=== PATIENT | female | born 1995 | race Caucasian/White ===

== ENCOUNTER 2023-03-13 08:34 | Outpatient (OUT) | payer BC, SELFPAY ==
[2023-03-13 09:17] LABS: Basophils Absolute Auto 0.1 10^3/uL (0.0-0.1); Eosinophils Absolute Auto 0.1 10^3/uL (0.0-0.7); Eosinophils Percent Auto 1.2 % (0.9-7.0); Hematocrit 37.3 % (36.0-48.0); Hemoglobin 12.5 g/dL (12.0-16.0); Immature Granulocytes Abs Auto 0.02 10^3/uL (0.00-0.03); Immature Granulocytes Pct Auto 0.3 % (0.0-0.5); Lymphocytes Absolute Auto 1.7 10^3/uL (1.2-3.8); Lymphocytes Percent Auto 28.8 % (20.5-60.0); Mean Corpuscular HGB Conc 33.5 g/dL (29.9-35.2); Mean Corpuscular Hemoglobin 27.1 pg (26.7-34.0); Mean Corpuscular Volume 80.9 fL (81.0-99.0); Mean Platelet Volume 10.8 fL (9.5-13.5); Monocytes Absolute Auto 0.5 10^3/uL (0.3-0.8); Neutrophils Absolute Auto 3.4 10^3/uL (1.4-6.5); Neutrophils Percent Auto 59.7 % (43.0-75.0); Platelet Count 242 10^3/uL (150-450); Red Blood Count 4.61 10^6/uL (4.20-5.40); Red Cell Distribution Width 13.3 % (11.0-15.0); White Blood Count 5.8 10^3/uL (4.0-11.0)
[2023-03-13 10:11] LABS: Estimated Average Glucose 103 mg/dL; Glycohemoglobin A1C 5.2 % (4.5-6.2)
[2023-03-13 11:26] LABS: Alanine Aminotransferase 15 U/L (14-59); Albumin Level 3.6 g/dL (3.4-5.0); Alkaline Phosphatase 55 U/L (46-116); Anion Gap 12.1; Aspartate Amino Transferase 11 U/L (15-37); Bilirubin Total 0.4 mg/dL (0.2-1.0); Calcium 8.4 mg/dL (8.5-10.1); Carbon Dioxide 27.1 mmol/L (21.0-32.0); Chloride 106 mmol/L (98-107); Chol HDL Ratio 2.9; Cholesterol 134 mg/dL (<=200); Estimated GFR (African America >60 (>=60); Estimated GFR (Non-African Ame >60 (>=60); Free T3 2.41 pg/mL (2.18-3.98); Globulin 3.5 g/dL; Glucose 91 mg/dL (74-106); HDL Cholesterol 46 mg/dL (40-60); LDL Cholesterol Calculated 69.6 mg/dL; Potassium 4.2 mmol/L (3.5-5.1); Sodium 141 mmol/L (136-145); Thyroid Stimulating Hormone 0.951 uIU/mL (0.358-3.740); Total Protein 7.1 g/dL (6.4-8.2); Triglycerides 92 mg/dL (<=150); VLDL CHOLESTEROL 18.4 mg/dL
[2023-03-14 12:09] LABS: Insulin 7.8 uIU/mL (2.6-24.9)
== END 2023-03-13 08:35 | disposition home or self-care (01) ==
LOC: LAB 08:40
PROVIDERS: PCP Family Medicine; Visit Provider Family Medicine
DX: Z00.00 Encounter for general adult medical examination without abnormal findings (principal); E78.5 Hyperlipidemia, unspecified; R73.09 Other abnormal glucose; D64.9 Anemia, unspecified
CPT/HCPCS: 36415; 80053; 80061; 83036; 83525; 83540; 84436; 84443; 84481; 85025

== ENCOUNTER 2023-09-13 | Outpatient (REF) | payer BC, SELFPAY | END 2023-09-13 00:01 | disposition home or self-care (01) | LOC: LAB | PROVIDERS: PCP Family Medicine; Visit Provider Surgery | DX: L72.0 Epidermal cyst (principal) | CPT/HCPCS: 88304 ==

== ENCOUNTER 2023-11-20 07:33 | Outpatient (OUT) | payer BC, SELFPAY ==
--- OUTSIDE RECORDS SUMMARY | 2023-11-20 07:36 | XMS_ITS | CCD ---
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 Name Role Phone ANTWAN ., DR ESTRELLA Admitting Unavailable HOY ., DR ESTRELLA Attending Unavailable HOY ., DR ESTRELLA Primary Care Unavailable HOY ., DR ESTRELLA Consulting Unavailable HOY ., DR ESTRELLA Admitting Unavailable HOY ., DR ESTRELLA Attending Unavailable HOY ., DR ESTRELLA Primary Care Unavailable HOY ., DR ESTRELLA Consulting Unavailable HOY ., DR ESTRELLA Admitting Unavailable HOY ., DR ESTRELLA Attending Unavailable HOY ., DR ESTRELLA Primary Care Unavailable HOY ., DR ESTRELLA Consulting Unavailable HOY ., DR ESTRELLA Primary Care Unavailable REINECK, DR DARVIN Chicas Admitting Unavailabl e REINECK, DR DARVIN Chicas Attending Unavailabl e REINECK, DR DARVIN Chicas Consulting Unavailabl e PHONGL, Sean Adan Attending Unavailable Delores Churchill Primary Care Physician Sean ELKINS Attending Unavailable NILL, Sean Adan Attending Unavailable NILL, Sean Adan Attending Unavailable NILL, Sean Adan Attending Unavailable Allergies Allergy Classification Reported Allergen(s) Allergy Type Date of Onset Reaction(s) Facility (2 sources) No Known Medication Allergies; Translations: [No Known Medication Allergies] Propensity to adverse reactions (disorder) [facility] Repository Problems Active Problems Problem Classification Problem Date Documented Date Episodic/Chronic Anxiety disorders (3 sources) Anxiety 08-04-2023 Chronic Biliary tract disease (2 sources) Biliary calculus 04-17-2014 Episodic Essential hypertension (3 sources) Hypertensive disorder 08-04-2023 Chronic Heart valve disorders (3 sources) Mitral valve prolapse 08-04-2023 Chronic Other diseases of kidney and ureters (3 sources) Vesicoureteric reflux 08-04-2023 Episodic Other nutritional; endocrine; and metabolic disorders (3 sources) Body mass index 30+ - obesity 08-16-2023 Chronic Other nutritional; endocrine; and metabolic disorders (5 sources) Morbid obesity 08-16-2023 Chronic Other skin disorders (3 sources) Epidermoid cyst; Translations: [Epidermal cyst] Onset: 08-16-2023 Episodic Other skin disorders (3 sources) Epidermoid cyst of skin 08-16-2023 Episodic Other skin disorders (3 sources) Sebaceous cyst 08-04-2023 Episodic Other upper respiratory infections (1 source) Acute upper respiratory infection, unspecified; Translations: [ACUTE UP RESPIRATORY INFECTION UNS] Onset: 11-21-2022 Episodic Unclassified (3 sources) COUGH, UNSPECIFIED; Translations: [COUGH, UNSPECIFIED] Onset: 07-23-2022 Unclassified (4 sources) CONTACT W/AND (SUSP) EXPOS COVID-19; Translations: [CONTACT W/AND (SUSP) EXPOS COVID-19] Onset: 05-29-2022 Past or Other Problems Problem Classification Problem Date Documented Da te Episodic/Chronic Acute bronchitis (1 source) Acute bronchitis, unspecified; Translations: [ACUTE BRONCHITIS UNSPECIFIED] Onset: 03-31-2022 Episodic Unclassified (1 source) COUGH, UNSPECIFIED; Translations: [COUGH, UNSPECIFIED] Onset: 11-19-2022 Unclassified (1 source) CONTACT W/AND (SUSP) EXPOS COVID-19; Translations: [CONTACT W/AND (SUSP) EXPOS COVID-19] Onset: 05-26-2022 Results Test Name Value Interpretation Reference Range Facility Ambulatory Visit Summaryon 0 09-26-2023 Ambulatory Visit Summary SAHIL RODRIGEZ :1995 Visit Date:09/26/2023 Ambulatory Visit Instructions Your Care Team Attending Physician - BRITTNI DURAN, Sean Adan Primary Care Physician - Antwan DURAN, Delores Procedures Performed Excision of cyst (09/13/2023), robotic assisted laparoscopic cholecystectomy (04/24/2014), Cholecystectomy, INJECTION OF DEFLEX, Tooth extraction. Allergies No Known Allergies No Known Medication Allergies Problems Ongoing - Any problem that you are currently receiving treatment for. Anxiety BMI 39.0-39.9,adult Cholelithiasis Epidermal cyst Extreme obesity 06-FEB-2014 12:48:08<$> Hypertensive disorder Mitral prolapse Morbid obesity Sebaceous cyst Vesicoureteral reflux Patient Survey You may receive a survey via text or e-mail asking about your office visit. Please share your experience with us by completing your survey. We appreciate your feedback and thank you for choosing us for your care. Ender B[facility] General Surgery Office/Clini c Noteon 09-26-2023 General Surgery Office/Clinic Note Chief Complaint post operative follow up HPI Staff 13 day post operative follow up post in-office excisional biopsy left upper back. Denies discomfort or bleeding. Reports scant serous drainage noted today. Sutures intact. History of Present Illness almost 2 weeks s/p excisional biopsy epidermal cyst left upper back; doing well, no pain, some itching, minimal drainage; pathology consistent with epidermal cyst. Review of Systems ROS - Provider Constitutional: no fever, no sweats, no weight loss. Eyes: no glasses, no blurred vision, no visual loss. ENMT: no dentures, no hoarseness, no swallowing difficulties, no hearing loss, no ear infection(s), no nose bleeds. Cardiovascular: normal blood pressure, no chest pain, regular heartbeat, no heart murmur. Respiratory: no shortness of breath, no cough, no asthma, no wheezing. Gastrointestinal: no nausea, no vomiting, no diarrhea, no constipation, no blood in stool, no change in bowel habits, no abdominal pain, no hepatitis. Genitourinary: no kidney stones, no urine infection, no dysuria. Musculoskeletal: no pain, no weakness. Skin: no changing moles, no rash, no skin lumps. Neurologic: no seizures, no epilepsy, no headache. Psychiatric: no emotional or psychiatric problem. Heme/Lymph: no bleeding problems, no anemia, no blood clots, no transfusions. Allergy/Immunologic: no swollen lymph nodes/glands, no IV drug abuse. Other: Additional ROS info: Except as noted in the above Review of Systems and in the History of Present Illness, all other systems have been reviewed and are negative or noncontributory. Physical Exam skin: incision healing well, no drainage, minimal erythema around sutures. Assessment/Plan 1. Epidermal cyst (L72.0: Epidermal cyst) sutures removed; call with problems/questions. Follow-up With When Contact Information BRITTNI DURAN, MARCIANO Polo Only if needed [address] [place] [address]- Additional Instructions: Problem List/Past Medical History Ongoing Anxiety BMI 39.0-39.9,adult Cholelithiasis Epidermal cyst Extreme obesity 06-FEB-2014 12:48:08<$> Hypertensive disorder Mitral prolapse Morbid obesity Sebaceous cyst Vesicoureteral reflux Historical No qualifying data Procedure/Surgical History Excision of cyst (09/13/2023), robotic assisted laparoscopic cholecystectomy (04/24/2014), Cholecystectomy, INJECTION OF DEFLEX, Tooth extraction. Medications No active medications Allergies No Known Allergies No Known Medication Allergies Social History Alcohol - Denies Alcohol Use, 08/16/2023 Substance Abuse - Denies Substance Abuse, 08/16/2023 Tobacco - Denies Tobacco Use, 04/17/2014 Never (less than 100 in lifetime) Tobacco Use:. Never Smokeless Tobacco Use:., 08/16/2023 Family History Diabetes mellitus type 2: Father. Hypertension: Mother. Immunizations Vaccine Date Status Comments influenza virus vaccine, inactivated - Not Given Patient Refuses [facility] Comment on above: Result Comment: Elec tronically Signed By: BRITTNI DURAN, Sean Adan\.br\Date and Time Signed: 09/26/23 19:15 EST Pathology Noteon 09-21-2023 Pathology Note [id number] .00TIFF [facility] Pathology Noteon 09-19-2023 Pathology Note [id number] .00TIFF [facility] Ambulatory Visit Summaryon 0 09-13-2023 Ambulatory Visit Summary SAHIL RODRIGEZ :1995 Visit Date:09/13/2023 Ambulatory Visit Instructions Your Care Team Attending Physician - Sean ELKINS MD Primary Care Physician - Delores Churchill MD Procedures Performed robotic assisted laparoscopic cholecystectomy (04/24/2014), Cholecystectomy, INJECTION OF DEFLEX, Tooth extraction. What to do next Scheduled Follow-Up Appointments Monday 3:40 PM EST With: Sean ELKINS MD Where: General Surgery [facility] General Surgery Office/Clini c Noteon 09-13-2023 General Surgery Office/Clinic Note Chief Complaint in-office excisional biopsy HPI Staff Presents for in-office excisional biopsy epidermal cyst left upper back. History of Present Illness here for excisional biopsy of epidermal cyst left upper back, slight increase in size. Review of Systems ROS - Provider Constitutional: no fever, no sweats, no weight loss. Eyes: no glasses, no blurred vision, no visual loss. ENMT: no dentures, no hoarseness, no swallowing difficulties, no hearing loss, no ear infection(s), no nose bleeds. Cardiovascular: normal blood pressure, no chest pain, regular heartbeat, no heart murmur. Respiratory: no shortness of breath, no cough, no asthma, no wheezing. Gastrointestinal: no nausea, no vomiting, no diarrhea, no constipation, no blood in stool, no change in bowel habits, no abdominal pain, no hepatitis. Genitourinary: no kidney stones, no urine infection, no dysuria. Musculoskeletal: no pain, no weakness. Skin: no changing moles, no rash, no skin lumps. Neurologic: no seizures, no epilepsy, no headache. Psychiatric: no emotional or psychiatric problem. Heme/Lymph: no bleeding problems, no anemia, no blood clots, no transfusions. Allergy/Immunologic: no swollen lymph nodes/glands, no IV drug abuse. Other: Additional ROS info: Except as noted in the above Review of Systems and in the History of Present Illness, all other systems have been reviewed and are negative or noncontributory. Physical Exam skin: 1 cm epidermal cyst left upper back, no skin changes, or drainage, nontender. Procedure patient brought to the procedure room, placed in supine position, area prepped and draped in sterile fashion; anesthetized with 1 % lidocaine; lesion excised in elliptical fashion down to subcutaneous fat; total length of incision 1.5 cm, closed with interrupted 4-0 nylon sutures; tolerated well; ebl < 5 ml; sterile dressing applied. Assessment/Plan 1. Epidermal cyst (L72.0: Epidermal cyst) excised under local anesthesia, tolerated well; take ibuprofen as needed for pain; f/u in 10-14 days for suture removal, call sooner if problems/questions. Orders: acetaminophen-hydroco done, 2 tab(s), Oral, q6hr Pain, 50 tab(s), Refill(s) 0, TAKE WITH FOOD Follow-up No qualifying data available Problem List/Past Medical History Ongoing Anxiety BMI 39.0-39.9,adult Cholelithiasis Epidermal cyst Extreme obesity 06-FEB-2014 12:48:08<$> Hypertensive disorder Mitral prolapse Morbid obesity Sebaceous cyst Vesicoureteral reflux Historical No qualifying data Procedure/Surgical History robotic assisted laparoscopic cholecystectomy (04/24/2014), Cholecystectomy, INJECTION OF DEFLEX, Tooth extraction. Medications No active medications Allergies No Known Allergies No Known Medication Allergies Social History Alcohol - Denies Alcohol Use, 08/16/2023 Substance Abuse - Denies Substance Abuse, 08/16/2023 Tobacco - Denies Tobacco Use, 04/17/2014 Never (less than 100 in lifetime) Tobacco Use:. Never Smokeless Tobacco Use:., 08/16/2023 Family History Diabetes mellitus type 2: Father. Hypertension: Mother. Immunizations Vaccine Date Status Comments influenza virus vaccine, inactivated - Not Given Patient Refuses [facility] Comment on above: Result Comment: Elec tronically Signed By: BRITTNI DURAN, Sean Adan\.br\Date and Time Signed: 09/13/23 15:03 EST Insurance Correspondenceon 0 09-13-2023 Insurance Correspondence [id number]# 1.00TIFF [facility] Facesheeton 08-17-2023 Facesheet [id number]# 1.00TIFF [facility] Ambulatory Visit Summaryon 0 08-16-2023 Ambulatory Visit Summary SAHIL RODRIGEZ :1995 Visit Date:08/16/2023 Ambulatory Visit Instructions Your Care Team Attending Physician - BRITTNI DURAN, Sean Adan Primary Care Physician - Antwan DURAN, Delores Procedures Performed Cholecystectomy. Discharge Vitals Heart Rate (Peripheral) 72 Respiratory Rate 16 Blood Pressure 130/88 Height 180.34 cm Height 71 in Weight 128.7 kg Weight 283.14 lb BMI 39.57 Medications and Immunizations Administered Not Given influenza virus vaccine, inactivated, Patient Refuses Allergies No Known Allergies No Known Medication Allergies Problems Ongoing - Any problem that you are currently receiving treatment for. Anxiety BMI 39.0-39.9,adult Hypertensive disorder Mitral prolapse Morbid obesity Sebaceous cyst Vesicoureteral reflux Patient Survey You may receive a survey via text or e-mail asking about your office visit. Please share your experience with us by completing your survey. We appreciate your feedback and thank you for choosing us for your care. [facility] Provider Letteron 08-16-2023 Provider Letter August 16, 2023 SAHIL RODRIGEZ [address] [place] [address] : 1995 To Whom It May Concern, Please excuse above patient from work. Date of Illness:appt From: 08/16/23 To: 08/17/23 May Return to Work On:08/17/23 Comments: Sincerely, Dr Sean Elkins [facility] Covid-19 PCR (CVDTB)on 07-07 SARS-CoV-2 (COVID-19) RNA RAJESH+probe Ql (Unsp spec) Not detected Normal NOT DETECTED [facility] Comment on above: Result Comment: This test is not yet approved or cleared by the [place] FDA. When there are no FDA-approved or cleared tests available, and other criteria are met, FDA can make tests available under an emergency access mechanism called an Emergency Use Authorization (EUA). The EUA for this test is supported by the [place] of Health and Human Service's (HHS's) declaration that circumstances exist to justify the emergency use of in vitro diagnostics for the detection and/or diagnosis of the virus that causes COVID-19. This EUA will remain in effect (meaning this test can be used) for the duration of the COVID-19 declaration justifying emergency of IVDs, unless it is terminated or revoked by FDA (after which the test may no longer be used). When diagnostic testing is negative, the possibility of a false negative should be considered in the context of a patient's recent exposures and the presence of clinical signs and symptoms consistent with SARS-CoV-2. Performed By: #### C VDTB #### [facility] [address] [place] [id number] [address] Cassidy Hannah INFLUENZA A AND B AGon 07-18 [facility] Comment on above: Result Comment: Nega tive for Flu A protein angiten. Infection due to Flu A cannot be ruled out. Flu A angiten in the sample may be below the detection limit of the test. Performed By: #### I NFLUAB #### [facility] [address] [place] [address] Dr. Cassidy [facility] SEE BELOW [facility] Comment on above: Result Comment: Nega tive for Flu B protein antigen. Infection due to Flu B cannot be ruled out. Flu B antigen in the sample may be below the detection limit of the test. Performed By: #### I NFLUAB #### [facility] [address] [place] [address] Dr. Cassidy Hannah INFLUENZA A AG Negative Normal NEGATIVE SEE COMMENT [facility] Comment on above: Performed By: #### I NFLUAB #### [facility] [address] [place] [address] Dr. Cassidy Hannah INFLUENZA B AG Negative Normal NEGATIVE SEE COMMENT [facility] Comment on above: Performed By: #### I NFLUAB #### [facility] [address] [place] [address] Dr. Cassidy Hannah INTERNAL CONTROLS Within Normal Limits Normal Wi thin Normal Limits [facility] Comment on above: Performed By: #### I NFLUAB #### [facility] [address] [place] [address] Dr. Cassidy Hannah SYMPTOMATIC COVID-19 ANTIGEN on 07-18-2022 EUA Statement SEE BELOW Normal [facility] Comment on above: Result Comment: This test has not been FDA cleared or approved, but has been authorized by the FDA under an Emergency Use Authorization (EUA) for use by authorized laboratories certified under CLIA that meet the requirements to perform moderate or high complexity testing. This test has been authorized only for the detection of proteins from SARS-CoV-2, not for any other viruses or pathogens. The emergency use of this test is authorized for the duration of the declaration that circumstances exist justifying the authorization of emergency use of in vitro diagnostic tests for detection and/or diagnosis of Covid-19 under section 564(b)(1) of the Act, 21 U.S.C. 360bbb-3(b)(1), unless the declaration is terminated or authorization is revoked sooner. Performed By: #### C VDAGS #### [facility] [address] [place] [address] Dr. Cassidy Hannah SARS-CoV-2 (COVID-19) RNA RAJESH+probe Ql (Unsp spec) Negative Normal NEGATIVE [facility] Comment on above: Performed By: #### C VDAGS #### [facility] [address] [place] [address] Dr. Cassidy Hannah Covid-19 PCR (CVDTBH)on 05-08 SARS-CoV-2 (COVID-19) RNA RAJESH+probe Ql (Unsp spec) Not detected Normal NOT DETECTED [facility] Comment on above: Result Comment: When diagnostic testing is negative, the possibility of a false negative should be considered in the context of a patient's recent exposures and the presence of clinical signs and symptoms consistent with SARS-CoV-2. This test is not yet approved or cleared by the [place] FDA. When there are no FDA-approved or cleared tests available, and other criteria are met, FDA can make tests available under an emergency access mechanism called an Emergency Use Authorization (EUA). The EUA for this test is supported by the Die Mounter of Health and Human Service's declaration that circumstances exist to justify the emergency use of in vitro diagnostics for the detection and/or diagnosis of the virus that causes COVID-19. This EUA will remain in effect for the duration of the COVID-19 declaration justifying emergency of IVDs, unless it is terminated or revoked by the FDA (after which the test may no longer be used). Performed By: #### C VDTBH #### [facility] [address] [place], [place] [id number] Dr. Cassidy Hannah Covid-19 PCR (CVDTBH)on 03-08 SARS-CoV-2 (COVID-19) RNA RAJESH+probe Ql (Unsp spec) Not detected Normal NOT DETECTED [facility] Comment on above: Result Comment: This test is not yet approved or cleared by the [place] FDA. When there are no FDA-approved or cleared tests available, and other criteria are met, FDA can make tests available under an emergency access mechanism called an Emergency Use Authorization (EUA). The EUA for this test is supported by the [place] of Health and Human Service's (HHS's) declaration that circumstances exist to justify the emergency use of in vitro diagnostics for the detection and/or diagnosis of the virus that causes COVID-19. This EUA will remain in effect (meaning this test can be used) for the duration of the COVID-19 declaration justifying emergency of IVDs, unless it is terminated or revoked by FDA (after which the test may no longer be used). When diagnostic testing is negative, the possibility of a false negative should be considered in the context of a patient's recent exposures and the presence of clinical signs and symptoms consistent with SARS-CoV-2. Performed By: #### C [facility] #### [facility] [address] [place] [address] Dr. Cassidy Hannah Vital Signs Date Time Vital Sign Value Performing Clinician Faci lity 08-16-2023 14:19-0500 Blood Pressure Location Sean NILL [facility] 08-16-2023 14:19-0500 Diastolic blood pressure 88 mm[Hg] Sean NILL [facility] 08-16-2023 14:19-0500 Heart rate 72 /min Sean NILL [facility] 08-16-2023 14:19-0500 Respiratory rate 16 /min Sean NILL [facility] 08-16-2023 14:19-0500 Systolic blood pressure 130 mm[Hg] Sean NILL [facility] Encounters Encounter Date Encounter Type Care Provider Facility Start: 09-26-2023 End: 09-27-2023 ambulatory Sean ELKINS Facility:[facility] Start: 09-26-2023 End: 09-26-2023 Patient encounter procedure [facility] Start: 09-13-2023 End: 09-14-2023 ambulatory Sean ELKINS [facility] Start: 09-13-2023 End: 09-13-2023 Patient encounter procedure Sean Adan NILL [facility] Start: 08-16-2023 End: 08-17-2023 ambulatory Sean ELKINS Facility: [facility] Start: 08-16-2023 End: 08-16-2023 Patient encounter procedure Sean DARLINGL [facility] Start: 07-28-2023 ambulatory Sean BRITTNI [facility] Start: 11-19-2022 End: 11-19-[address] DELORES CHURCHILL . Facility: Start: 07-18-2022 End: 07-18-[address] DELORES CHURCHILL . Facility:[facility] Start: 05-26-2022 End: 05-26-[address] DELORES CHURCHILL . Facility:[facility] Start: 03-30-2022 End: 03-30-[address] DELORES CHURCHILL . Facility: Procedures Date Procedure Procedure Detail Performing Clinician Start: 09-13-2023 Excision of cyst Olamide DARLINGL Comment on above: left upper back Start: 04-24-2014 robotic assisted laparoscopic cholecystectomy Sean DARLINGL Cholecystectomy Sean ELKINS INJECTION OF DEFLEX 1 Jesusae agnes NILL Comment on above: FOR KIDNEY TUBES FLOR T DID NOT DEVELOP PROPERLY AT AGE 11 INJECTION OF DEFLEX 2 Michae l NILL Comment on above: FOR KIDNEY TUBES FLOR T DID NOT DEVELOP PROPERLY AT AGE 11 Tooth extraction Sean DARLING L Comment on above: WISDOM X4 Immunizations Immunization Date Immunization Notes Care Provider Fa zay NEGATED: Highlighted row has not occurred!08-16-2023 influenza virus vaccine, unspecified formulation Sean DARLINGL [facility] Payers Date Payer Category Payer Unknown [id number] 1995 Unknown [id number] 2.16.84 [id number] 1995 Unknown [id number] 2.16.84 [id number] 1995 Unknown [id number] 2.16.84 [id number] 1995 Unknown [id number] 2.16.84 [id number] 1995 Unknown [id number] 2.16.8 [id number] 1995 Unknown [id number] 2.16.8 [id number] 1995 Unknown [id number] 2.16.8 [id number] 1995 Unknown [id number] 2.16.8 [id number] 1995 Unknown [id number] 2.16.8 [id number] 1960 Self-pay 1960 Unknown [id number] Social History Date Type Detail Facility Start: 08-16-2023 Tobacco smoking status Never s moked tobacco (finding) [facility] Tobacco smoking status Never [facility] Sex Assigned At Female [facility] Functional Status Date Assessment Result Facility 08-16-2023 Functional Status N/A [facility] Discharge instructions 09-13-2023 Note Date & Type Note Facility 09-13-2023 Hospital Discharg e instructions Follow Up Care 09/13/2023 14:52:35 With:BRITTNI DURAN, MARCIANO Polo Address: [address] [place] [address]- When: only if needed [facility] Clinical Note 08-16-2023 Note Date & Type Note Facility 08-16-2023 Note Chief Complaint consultation for sebaceous cyst HPI Staff 28 year old female presents on consultation from Dr. Churchill for sebaceous cyst left posterior shoulder. Reports cyst has been present for several months. Does not believe this has changed in size since first noted. Reports occasional soreness. Denies this has ever been red or infected. Prescribed Doxycycline 100mg BID x 10 days on 07/26, she did not fill this as cyst never became infected. History of Present Illness 28 yo female referred for epidermal cyst left upper back; noticed several months ago, sore at times, no skin changes or drainage, no antibiotic therapy; no h/o other similar cysts; no asa or NSAID use; no tobacco use. Review of Systems PHQ Score Initial Depression Screen Score: 0 SCORE ROS - Provider Constitutional: no fever, no sweats, no weight loss. Eyes: no glasses, no blurred vision, no visual loss. ENMT: no dentures, no hoarseness, no swallowing difficulties, no hearing loss, no ear infection(s), no nose bleeds. Cardiovascular: normal blood pressure, no chest pain, regular heartbeat, no heart murmur. Respiratory: no shortness of breath, no cough, no asthma, no wheezing. Gastrointestinal: no nausea, no vomiting, no diarrhea, no constipation, no blood in stool, no change in bowel habits, no abdominal pain, no hepatitis. Genitourinary: no kidney stones, no urine infection, no dysuria. Musculoskeletal: no pain, no weakness. Skin: no changing moles, no rash, no skin lumps. Neurologic: no seizures, no epilepsy, no headache. Psychiatric: no emotional or psychiatric problem. Heme/Lymph: no bleeding problems, no anemia, no blood clots, no transfusions. Allergy/Immunologic: no swollen lymph nodes/glands, no IV drug abuse. Other: Additional ROS info: Except as noted in the above Review of Systems and in the History of Present Illness, all other systems have been reviewed and are negative or noncontributory. Physical Exam Vitals & Measurements HR: 72(Peripheral) RR: 16 BP: 130/88 HT: 71 in HT: 180.34 cm WT: 128.7 kg WT: 283.14 lb BMI: 39.57 HEENT: normal conjunctiva, sclera clear, no scleral icterus, EOM intact, PERRLA, oral mucosa moist without lesions. Neck: trachea midline, no mass, symmetric, no thyromegaly or nodules, no adenopathy. Musculoskeletal: normal gait, digits and nails without infection, nodes, cyanosis, clubbing. Skin: no rashes, no lesions, no ulcers, left upper back with 7 mm epidermal cyst, nontender, no skin changes or drainage Psychiatric/Neuro: oriented to time, place, person, judgement normal, affect appropriate for age, insight intact, no focal deficits. Tests: review of old records completed , Discussed surgical options, risks, and possible complications with patient. Assessment/Plan 1. Epidermal cyst (L72.0: Epidermal cyst) plan excisional biopsy under local anesthesia in the office, informed consent obtained. Follow-up No qualifying data available Problem List/Past Medical History Ongoing Anxiety BMI 39.0-39.9,adult Epidermal cyst Hypertensive disorder Mitral prolapse Morbid obesity Sebaceous cyst Vesicoureteral reflux Historical No qualifying data Procedure/Surgical History Cholecystectomy. Medications No active medications Allergies No Known Allergies No Known Medication Allergies Social History Alcohol - Denies Alcohol Use, 08/16/2023 Substance Abuse - Denies Substance Abuse, 08/16/2023 Tobacco Never (less than 100 in lifetime) Tobacco Use:. Never Smokeless Tobacco Use:., 08/16/2023 Family History Diabetes mellitus type 2: Father. Hypertension: Mother. Immunizations Vaccine Date Status Comments influenza virus vaccine, inactivated - Not Given Patient Refuses [facility] Comment on above: Result Comment: Elec tronically Signed By: Sean ELKINS MD\.br\Date and Time Signed: 08/16/23 15:36 EST Evaluation + Plan note Note Date & Type Note Facility Evaluation + Plan note Future Appointments Appointment Date:09/13/2023 02:00:00 PM Scheduled Provider:Sean ELKINS MD Location:[facility] Appointment Type: Procedure 30 [facility] [place] Evaluation + Plan note Note Date & Type Note Facility Evaluation + Plan note Future Appointments Appointment Date:09/26/2023 03:40:00 PM Scheduled Provider:Sean ELKINS MD Location:[facility] Appointment Type: Established 15 General [facility] [place] [facility] course Narrative Note Date & Type Note Facility Hospital course Narrative No data available for this section [facility] Discharge instructions Note Date & Type Note Facility Hospital Discharge instructions No data available for this section [facility] note Note Date & Type Note Facility Progress note No data available for this section [facility] Summary Purpose Family History No Family History Records FoundNo Family History Records Found No data available for this section No data available for this section No data available for this section No Family History Records Found Advance Directives No Advanced Directives Records FoundNo Advanced Directives Records FoundNo Advanced Directives Records Found Additional Source Comments INFORMATION SOURCE (unrecogn ized section and content) DATE CREATED AUTHOR 11/22/2022 [facility] DATE CREATED AUTHOR AUTHOR'S ORGANIZ ATION 08/16/2023 [facility] DATE CREATED AUTHOR AUTHOR'S ORGANIZ ATION 10/03/2023 [facility] Patient Care team informatio n (unrecognized section and content) Personnel Name: Delores Churchill MD Address: Address: [address] [place] [address] Personnel Name: Delores Churchill MD Address: Address: [address] [place] [address] Personnel Name: Delores Churchill MD Address: Address: [address] [place] [address] FOR RECORDS PERTAINING TO PATIENTS WHO ARE OR HAVE BEEN ENROLLED IN A CHEMICAL DEPENDENCY/SUBSTANCEABUSE PROGRAM, SOME INFORMATION MAY BE OMITTED. This clinical summary was aggregated from multiple sources. Caution should be exercised in using it in the provision of clinical care. This summary normalizes information from multiple sources, and as a consequence, information in this document may materially change the coding, format and clinical context of patient data. In addition, data may be omitted in some cases. CLINICAL DECISIONS SHOULD BE BASED ON THE PRIMARY CLINICAL RECORDS. [facility]. provides no warranty or guarantee of the accuracy or completeness of information in this document.
[2023-11-20 07:46] LABS: Basophils Percent Auto 0.7 % (0.2-2.0); Eosinophils Absolute Auto 0.1 10^3/uL (0.0-0.7); Eosinophils Percent Auto 1.5 % (0.9-7.0); Hematocrit 36.9 % (36.0-48.0); Immature Granulocytes Abs Auto 0.01 10^3/uL (0.00-0.03); Immature Granulocytes Pct Auto 0.2 % (0.0-0.5); Lymphocytes Absolute Auto 1.8 10^3/uL (1.2-3.8); Lymphocytes Percent Auto 28.9 % (20.5-60.0); Mean Corpuscular HGB Conc 32.5 g/dL (29.9-35.2); Mean Corpuscular Hemoglobin 27.4 pg (26.7-34.0); Mean Corpuscular Volume 84.2 fL (81.0-99.0); Mean Platelet Volume 9.4 fL (9.5-13.5); Monocytes Absolute Auto 0.5 10^3/uL (0.3-0.8); Monocytes Percent Auto 8.6 % (1.7-12.0); Neutrophils Absolute Auto 3.7 10^3/uL (1.4-6.5); Neutrophils Percent Auto 60.1 % (43.0-75.0); Platelet Count 263 10^3/uL (150-450); Red Blood Count 4.38 10^6/uL (4.20-5.40); Red Cell Distribution Width 12.6 % (11.0-15.0); White Blood Count 6.1 10^3/uL (4.0-11.0)
[2023-11-20 08:24] LABS: Alanine Aminotransferase 16 U/L (14-59); Albumin Level 3.4 g/dL (3.4-5.0); Alkaline Phosphatase 64 U/L (46-116); Anion Gap 11.8; Aspartate Amino Transferase 12 U/L (15-37); BUN Creatinine Ratio 13.3; Bilirubin Total 0.4 mg/dL (0.2-1.0); Calcium 8.6 mg/dL (8.5-10.1); Carbon Dioxide 29.1 mmol/L (21.0-32.0); Chloride 103 mmol/L (98-107); Estimated GFR (African America >60 (>=60); Estimated GFR (Non-African Ame >60 (>=60); Free T3 2.93 pg/mL (2.18-3.98); Globulin 3.4 g/dL; Glucose 90 mg/dL (74-106); Potassium 3.9 mmol/L (3.5-5.1); Sodium 140 mmol/L (136-145); Thyroid Stimulating Hormone 1.231 uIU/mL (0.358-3.740); Total Protein 6.8 g/dL (6.4-8.2)
[2023-11-20 09:28] LABS: Estimated Average Glucose 100 mg/dL; Glycohemoglobin A1C 5.1 % (4.5-6.2)
== END 2023-11-20 07:34 | disposition home or self-care (01) ==
LOC: LAB 07:33
PROVIDERS: PCP Family Medicine; Visit Provider Family Medicine
DX: R55 Syncope and collapse (principal); R73.09 Other abnormal glucose; D64.9 Anemia, unspecified
CPT/HCPCS: 36415; 80053; 83036; 83525; 83540; 84436; 84443; 84481; 85025

== ENCOUNTER 2024-07-01 08:54 | Outpatient (OUT) | payer BC, SELFPAY ==
[2024-07-01 10:41] LABS: Glucose 92 mg/dL (74-106); Thyroid Stimulating Hormone 0.975 uIU/mL (0.358-3.740)
[2024-07-02 04:07] LABS: FSH 4.3 mIU/mL (.); Insulin 9.8 uIU/mL (2.6-24.9)
[2024-07-04 01:07] LABS: Free Testosterone(Direct) 4.4 pg/mL (0.0-4.2); Testosterone 44 ng/dL (13-71)
== END 2024-07-01 08:55 | disposition home or self-care (01) ==
LOC: LAB 08:55
PROVIDERS: PCP Family Medicine; Visit Provider Obstetrics & Gynecology
DX: N92.0 Excessive and frequent menstruation with regular cycle (principal); N94.6 Dysmenorrhea, unspecified; N94.10 Unspecified dyspareunia
CPT/HCPCS: 36415; 82627; 82947; 83001; 83525; 84402; 84403; 84443